=== PATIENT | male | born 1930 | race Caucasian/White ===

== ENCOUNTER 2016-08-22 10:44 | Emergency (ER) | payer OTHER ==
[~2016-08-22] VITALS: Ht 177.8 cm; Wt 91.9 kg
[~2016-08-22 10:44] MED LIST: ADULT LOW DOSE81 M1 PO; ALEVE220 M2 PO; CALTRATE 600600 MG PO; CARVEDILOL25 MG PO; DIOVAN320 MG PO; DULCOLAX5 MG PO; LANTUS (UNITS)1 UNIT SC; LEVOTHROID125 MCG PO; MULTIVITAMIN1 EAC2 PO; NOVOLIN,HU100 UNITS1 SC; VITAMIN B12-FO1 EACH PO; VITAMIN C1000 MG PO; ZETIA10 MG PO; [UNRECOGNIZED DRUG - OTHER] PO
[2016-08-22 12:15] LABS: HEMATOCRIT 37.4 % (38.0-50.0); MCH 28.7 PG (29.0-34.0); MCV 84.6 FL (86-99); MEAN PLAT.VOLUME 9.2 uM^3 (9.0-12.4); PLATELET COUNT 182 K/uL (156-360); RBC DIS.WIDTH-CV 13.9 % (11.8-14.6); RBC DIS.WIDTH-SD 42.5 % (39-53); RED BLOOD COUNT 4.42 M/uL (4.00-5.50)
[2016-08-22 12:24] LABS: CHLORIDE 99 mEq/L (99-109); POTASSIUM 4.2 mEq/L (3.7-5.4); SODIUM 138 mEq/L (136-147)
[2016-08-22 12:26] LABS: GLUCOSE 346 mg/dL (70-99)
[2016-08-22 12:27] LABS: ANION GAP 9 MEQ/L (2-14)
[2016-08-22 12:28] LABS: TOTAL BILIRUBIN 0.6 mg/dL (0.0-1.0)
[2016-08-22 12:30] LABS: ALKALINE PHOSPHATASE 78 IU/L (3-129); GFR ESTIMATE (CALCULATED) 56 mL/min/
[2016-08-22 12:31] LABS: UREA NITROGEN (BUN) 23 mg/dL (9-23)
[2016-08-22] MEDS ORDERED: KEFLEX500 MG PO (15:09)
[2016-08-22] MEDS ORDERED: INDOCIN50 MG PO (15:09)
[2016-08-22 15:30] VITALS: BP 144/59
== END 2016-08-22 15:52 | disposition home or self-care (01) ==
LOC: EME 10:44
PROVIDERS: Emergency Medicine
DX: L03.115 Cellulitis of right lower limb (principal); M10.071 Idiopathic gout, right ankle and foot; E11.65 Type 2 diabetes mellitus with hyperglycemia; E78.5 Hyperlipidemia, unspecified; I10 Essential (primary) hypertension; I25.10 Atherosclerotic heart disease of native coronary artery without angina pectoris; Z98.61 Coronary angioplasty status; Z79.82 Long term (current) use of aspirin; Z79.4 Long term (current) use of insulin; Z87.891 Personal history of nicotine dependence
CPT/HCPCS: 71020; 73630; 80053; 83880; 85027; 87040; 93005; 93971; 99281; 99284

== ENCOUNTER 2016-09-03 05:31 | Observation (INO) | payer OTHER ==
[~2016-09-03] VITALS: Ht 177.8 cm; Wt 89.4 kg
[~2016-09-03 05:31] MED LIST changes: +INDOCIN50 MG PO; +KEFLEX500 MG PO
[2016-09-03 06:06] LABS: CHLORIDE 100 mEq/L (99-109); SODIUM 135 mEq/L (136-147)
[2016-09-03 06:07] LABS: GLUCOSE 221 mg/dL (70-99)
[2016-09-03 06:09] LABS: ANION GAP 8 MEQ/L (2-14)
[2016-09-03 06:11] LABS: GFR ESTIMATE (CALCULATED) 51 mL/min/
[2016-09-03 06:12] LABS: UREA NITROGEN (BUN) 26 mg/dL (9-23)
[2016-09-03 06:16] LABS: TROP-I INTERPRETATION NEGATIVE; TROPONIN-I < 0.01 ng/mL (0.0-0.30)
[2016-09-03 06:21] LABS: HEMATOCRIT 37.1 % (38.0-50.0); MCH 28.3 PG (29.0-34.0); MCV 83.2 FL (86-99); MEAN PLAT.VOLUME 9.7 uM^3 (9.0-12.4); PLATELET COUNT 212 K/uL (156-360); RBC DIS.WIDTH-SD 40.9 % (39-53); RED BLOOD COUNT 4.46 M/uL (4.00-5.50)
[2016-09-03] MEDS ORDERED: ISOSORBIDE MONO60 MG PO (06:22)
[2016-09-03] MEDS ORDERED: LEVOTHYROXINE150 MCG PO (06:23)
[2016-09-03] MEDS ORDERED: AMLODIPINE BESYL5 MG PO (06:24)
[2016-09-03] MEDS ORDERED: TYLENOL EXTRA500 MG PO (06:25)
[2016-09-03] MEDS ORDERED: HYDROCHLOROTHIA25 MG PO (06:26)
[2016-09-03] MEDS ORDERED: HUMALOG100 UNIT/1 SC ×3 (06:27→16:45)
[2016-09-03] MEDS ORDERED: VENTOLIN HFA18 GM IH (06:27)
[2016-09-03] MEDS ORDERED: MELATONIN10 M1 PO (06:29)
[2016-09-03] MEDS ORDERED: LEVEMIR100 UNIT/2 SC (06:29)
[2016-09-03 08:35] LABS: D-DIMER ELISA 1.45 mg/L FEU (< 0.57)
[2016-09-03 10:08] LABS: Estimated Average Glucose 183 mg/dL (70-123)
[2016-09-03 12:03] LABS: POINT-OF-CARE METER ID UU14100415
[2016-09-03 13:03] LABS: TROP-I INTERPRETATION NEGATIVE; TROPONIN-I < 0.01 ng/mL (0.0-0.30)
[2016-09-03] MEDS ORDERED: LEVO-T200 MCG PO (14:04)
[2016-09-03] MEDS ORDERED: NORVASC5 MG PO (14:05)
[2016-09-03] MEDS ORDERED: LEVEMIR FL100 UNIT/1 SC (14:07)
[2016-09-03] MEDS ORDERED: FLONASE16 G1 BOTH NARES (14:09)
[2016-09-03 18:51] LABS: TROP-I INTERPRETATION NEGATIVE; TROPONIN-I < 0.01 ng/mL (0.0-0.30)
[2016-09-03 19:21] LABS: POINT-OF-CARE METER ID UU14100415
[2016-09-03 21:05] VITALS: BP 164/96
[2016-09-04 19:17] LABS: POINT-OF-CARE METER ID UU14100415
== END 2016-09-03 20:50 | disposition home or self-care (01) ==
LOC: EME → EDBD 05:31 → EME 05:31 → EDOF 07:22
PROVIDERS: Emergency Medicine; Hospitalist; Nurse Practitioner Adult Health
DX: R07.89 Other chest pain (principal); R10.13 Epigastric pain; I25.10 Atherosclerotic heart disease of native coronary artery without angina pectoris; E11.65 Type 2 diabetes mellitus with hyperglycemia; J45.909 Unspecified asthma, uncomplicated; E78.5 Hyperlipidemia, unspecified; I10 Essential (primary) hypertension; Z95.5 Presence of coronary angioplasty implant and graft
CPT/HCPCS: 71020; 78582; 80048; 82948; 83036; 83880; 84484; 85027; 85379; 85610; 93005; 99281; 99285; A9539; A9540; G0378; J1815; J2270

== ENCOUNTER → 2017-02-22 | Outpatient (CLI) | payer OTHER ==
[~2017-02-22] MED LIST changes: +AMLODIPINE BESYL5 MG PO; +FLONASE16 G1 BOTH NARES; +HUMALOG100 UNIT/1 SC; +HYDROCHLOROTHIA25 MG PO; +ISOSORBIDE MONO60 MG PO; +LEVEMIR FL100 UNIT/1 SC; +LEVEMIR100 UNIT/2 SC; +LEVO-T200 MCG PO; +LEVOTHYROXINE150 MCG PO; +MELATONIN10 M1 PO; +NORVASC5 MG PO; +TYLENOL EXTRA500 MG PO; +VENTOLIN HFA18 GM IH
== END | disposition home or self-care (01) ==
LOC: CDC 09:40
DX: R94.31 Abnormal electrocardiogram [ECG] [EKG] (principal)
CPT/HCPCS: 93000